=== PATIENT | female | born 1950 | race Caucasian/White ===

== ENCOUNTER → 2019-11-06 | Outpatient (CLI) | payer MEDICARE | LOC: MC.RAD 08:00 | DX: Z12.31 Encounter for screening mammogram for malignant neoplasm of breast (principal); N63.21 Unspecified lump in the left breast, upper outer quadrant ==

== ENCOUNTER → 2019-11-11 | Outpatient (CLI) | payer MEDICARE, OTHER | LOC: MC.RAD 14:13 | DX: R92.8 Other abnormal and inconclusive findings on diagnostic imaging of breast (principal) ==

== ENCOUNTER → 2019-11-18 | Outpatient (CLI) | payer MEDICARE, OTHER | LOC: MC.RAD 07:41 | DX: N63.10 Unspecified lump in the right breast, unspecified quadrant (principal) ==

== ENCOUNTER 2019-12-30 06:42 | Day surgery (SDC) | payer MEDICARE, OTHER ==
[~2019-12-30] VITALS: Ht 157.5 cm; Wt 73.4 kg
[2019-12-30 07:30] VITALS: BP 152/91; PULSE 85; TEMP 97.9
[2019-12-30] MEDS ORDERED: MOTRIN 200200 MG/TAB PO ×2 (07:32→14:13)
--- NOTE | 2019-12-30 09:56 | NUR ---
The patient was taken via wheelchair back to radiology to have further imaging and her needle localization completed prior to surgery. Will continue to monitor the patient when she returns to the unit.
--- NOTE | 2019-12-30 11:15 | NUR ---
The patient arrived back to [facility] from radiology. The patient ambulated to the bathroom independently and then was settled back on the cart with warm blankets. Call light is within reach. The patient denies any further needs. Will continue to monitor the patient.
--- NOTE | 2019-12-30 11:54 | NUR ---
The patient was taken via cart to the operating room by NILSA Bueno. The patient's chart was sent with her to [facility]. Will continue to monitor the patient when she returns post operatively.
[2019-12-30] MEDS ORDERED: NORCO 325 MG-51 TAB PO (14:13)
[2019-12-30 14:20] VITALS: BP 141/73; PULSE 79; TEMP 98.9
--- NOTE | 2019-12-30 14:20 | NUR ---
The patient arrived back to [facility] from the recovery room at this time. The patient appears drowsy but arouses easily to her name. The patient denies any pain or nausea at this time. The patient has one incision to her right axilla which is closed with arana set and appears clean, dry and intact. The patient has oxygen in place at 1 L per nasal cannula. Post operative vital signs were started at this time. The patient agrees to try some ice chips at this time. Call light is within reach. Will continue to monitor the patient.
[2019-12-30 14:35] VITALS: BP 126/60; PULSE 78
--- NOTE | 2019-12-30 14:35 | NUR ---
The patient appears to be tolerating the ice chips well and agrees to try some wheat toast and cranberry juice. Vital signs appear stable. Call light remains within reach. Will continue to monitor the patient.
[2019-12-30 14:50] VITALS: BP 104/87; PULSE 86
--- NOTE | 2019-12-30 14:50 | NUR ---
The patient has finished her toast and is sipping in her juice and appears to be tolerating both well. The patient has given a PRN dose of [place] 1 tab for continued pain relief upon discharge. The patient was weaned to room air and appears to be tolerating it well. Will continue to monitor the patient.
[2019-12-30 15:05] VITALS: BP 124/63; PULSE 84
--- NOTE | 2019-12-30 15:05 | NUR ---
The patient ambulated to the bathroom with the stand by assistance of one and appeared to tolerate the activity well. The patient voided without difficulty and voices a desire to be discharged home. The nurse instructed the patient to get dressed and notify the staff when she is ready to review her discharge paperwork.
--- NOTE | 2019-12-30 15:15 | NUR ---
Discharge instructions were reviewed with the patient at this time. She verbalized understanding and has no questions for the nurse at this time. The patient's IV to her left hand was removed and a pressure dressing was applied to the site. The patient is dressed and ready to be escorted out.
--- NOTE | 2019-12-30 15:23 | NUR ---
The patient was escorted out via wheelchair to a private vehicle by NILSA Cerda. The patient's belongings and discharge paperwork were sent with her. The patient's is present to drive her home.
== END 2019-12-30 15:23 | disposition home or self-care (01) ==
LOC: SDCO 06:42
DX: C50.511 Malignant neoplasm of lower-outer quadrant of right female breast (principal); Z17.0 Estrogen receptor positive status [ER+]; Z87.891 Personal history of nicotine dependence
CPT/HCPCS: A9541; J1100; J2405; J2550; J2704; J3010; J7120

== ENCOUNTER 2020-01-08 10:27 | Day surgery (SDC) | payer MEDICARE, OTHER ==
[~2020-01-08] VITALS: Ht 157.5 cm; Wt 74.1 kg
[2020-01-08] VITALS (7 sets, daily range): BP systolic 109–154; BP diastolic 61–77; PULSE 77–96; TEMP 98–98.6
[~2020-01-08 10:27] MED LIST: MOTRIN 200200 MG/TAB PO; NORCO 325 MG-51 TAB PO
[2020-01-08] MEDS ORDERED: MOTRIN 200200 MG/TAB PO (14:13)
[2020-01-08] MEDS ORDERED: NORCO 325 MG-51 TAB PO (14:13)
--- NOTE | 2020-01-08 14:40 | NUR ---
Patient returns to room 3 per cart from PACU accompanied by Darshana ASH and is awake and alert. Temp 98.0 and room air sats 93%. Denies pain or nausea. IV fluids infusing and site is free of redness. Given sips of water to drink.
--- NOTE | 2020-01-08 14:55 | NUR ---
Taking sips of water and does well.
--- NOTE | 2020-01-08 15:10 | NUR ---
Eating toast and drinking water. Denies pain or nausea.
--- NOTE | 2020-01-08 15:25 | NUR ---
Resting and denies need for pain medication. Carlson set dressing covering the right breast incision dry. No swelling, redness, or drainage noted.
--- NOTE | 2020-01-08 15:35 | NUR ---
IV discontinued and site is free of redness. Assisted up to the bathroom and gait is steady. Voids and returns to room.
--- NOTE | 2020-01-08 15:45 | NUR ---
Patient dresses self.
--- NOTE | 2020-01-08 15:55 | NUR ---
Given dismissal instructions and voices understanding of home cares and follow up as scheduled. Provided scripts for [facility] and [facility]. Reviewed restrictions and voices understanding of these.
--- NOTE | 2020-01-08 16:01 | NUR ---
Patient dismissed to home per private vehicle driven by spouse and taken to the front door per wheelchair and assisted into vehilce by this RN with instructions in hand.
== END 2020-01-08 16:01 | disposition home or self-care (01) ==
LOC: SDCO 10:27
DX: D05.11 Intraductal carcinoma in situ of right breast (principal); M81.0 Age-related osteoporosis without current pathological fracture; Z11.59 Encounter for screening for other viral diseases; Z90.710 Acquired absence of both cervix and uterus; Z80.42 Family history of malignant neoplasm of prostate; Z80.41 Family history of malignant neoplasm of ovary; Z79.899 Other long term (current) drug therapy; Z87.891 Personal history of nicotine dependence
CPT/HCPCS: J0690; J1100; J1885; J2250; J2405; J2704; J2795; J3010; J7120

== ENCOUNTER → 2020-12-02 | Outpatient (CLI) | payer MEDICARE, OTHER | LOC: MC.RAD 11:45 | DX: Z98.890 Other specified postprocedural states (principal); Z85.3 Personal history of malignant neoplasm of breast ==

== ENCOUNTER 2021-09-28 17:08 | Emergency (ER) | payer MEDICARE ==
[~2021-09-28] VITALS: Ht 157.5 cm; Wt 72.7 kg
[2021-09-28 17:16] VITALS: TEMP 98.5
[2021-09-28] MEDS ORDERED: TAMOXIFEN CITRA20 MG PO (17:39)
[2021-09-28] MEDS ORDERED: CELEXA10 MG PO (17:40)
[2021-09-28 18:06] LABS: BASO # 0.1 K/mm3 (0.0-0.2); BASO % 1.2 % (0.0-2.0); EOS # 0.2 K/mm3 (0.0-0.7); EOS % 2.3 % (0.0-4.0); GRAN # 5.7 K/mm3 (1.4-6.5); GRAN % 55.9 % (42.2-75.2); HEMATOCRIT 39.2 % (37.0-47.0); HEMOGLOBIN 13.2 g/dl (12.5-16.0); LYMPH # 2.9 K/mm3 (1.2-3.4); LYMPH % 28.6 % (20.0-51.0); MEAN CELL VOLUME 89 fl (80.0-100.0); MEAN CORPUSCULAR HEMOGLOBIN 30 pg (27-31); MEAN CORPUSCULAR HGB CONC 34 g/dl (33.0-37.0); MEAN PLATELET VOLUME 11.8 fl (7.4-10.4); MONO # 1.2 K/mm3 (0.1-0.6); MONO % 11.4 % (1.7-9.3); PLATELET COUNT 201 K/mm3 (130-400); REDCELL DISTRIBUTION WIDTH-CV 12.3 % (11.5-14.5)
[2021-09-28 18:16] LABS: PROTHROMBIN TIME 11.6 SECONDS (9.7-12.8)
[2021-09-28 18:20] LABS: ALANINE AMINOTRANSFERASE 44 U/L (0-55); ALBUMIN 3.6 gm/dL (3.4-4.8); ALKALINE PHOSPHATASE 57 U/L (40-150); ANION GAP 12 mmol/L (7-16); AST,SGOT 39 U/L (5-34); BILIRUBIN,TOTAL 0.4 mg/dL (0.2-1.2); BLOOD UREA NITROGEN 11 mg/dL (10-20); CARBON DIOXIDE 22 mmol/L (23-31); CHLORIDE 109 mmol/L (98-107); CREATININE, serum 0.69 mg/dL (0.57-1.11); GLUCOSE 92 mg/dL (70-99); POTASSIUM 3.8 mmol/L (3.5-4.5); SODIUM 143 mmol/L (136-145); TOTAL PROTEIN 6.9 gm/dL (6.2-8.1)
[2021-09-28 18:27] LABS: TROPONIN-I < 0.010 ng/mL (0.00-0.033)
[2021-09-28] MEDS ORDERED: PREDNISONE20 MG PO (19:10)
[2021-09-28] MEDS ORDERED: ZOVIRAX400 MG PO (19:10)
[2021-09-28] MEDS ORDERED: LACRI LUBE1 OIN OP (19:29)
[2021-09-28 20:07] VITALS: BP 163/71; PULSE 68
== END 2021-09-28 19:33 | disposition home or self-care (01) ==
LOC: COL.ER 17:08
PROVIDERS: Nurse Practitioner
DX: G51.0 Bell's palsy (principal); F32.A Depression, unspecified; Z79.899 Other long term (current) drug therapy
CPT/HCPCS: J7512

== ENCOUNTER 2021-10-11 13:56 | Outpatient (CLI) | payer MEDICARE ==
[~2021-10-11] VITALS: Ht 157.5 cm; Wt 73.4 kg
[~2021-10-11 13:56] MED LIST changes: +CELEXA10 MG PO; +LACRI LUBE1 OIN OP; +PREDNISONE20 MG PO; +TAMOXIFEN CITRA20 MG PO; +ZOVIRAX400 MG PO
[2021-10-11 14:21] VITALS: BP 126/76; PULSE 78; TEMP 98
== END 2021-10-11 17:04 | disposition home or self-care (01) ==
LOC: EUO 13:56
DX: M81.0 Age-related osteoporosis without current pathological fracture (principal)
CPT/HCPCS: J3489

== ENCOUNTER → 2022-01-13 | Outpatient (CLI) | payer MEDICARE | LOC: MC.RAD 10:27 | DX: Z12.31 Encounter for screening mammogram for malignant neoplasm of breast (principal) ==

== ENCOUNTER → 2022-10-18 | Outpatient (CLI) | payer MEDICARE ==
[~2022-10-18] VITALS: Ht 157.5 cm; Wt 70.4 kg
[~2022-10-18] MED LIST changes: +PRINIVIL20 MG PO
[2022-10-18 10:23] VITALS: BP 131/79; PULSE 92; TEMP 98.5
== END ==
LOC: EUO 10:00
DX: M81.0 Age-related osteoporosis without current pathological fracture (principal)
CPT/HCPCS: J3489

== ENCOUNTER → 2023-09-21 | Outpatient (CLI) | payer MEDICARE ==
[~2023-09-21] MED LIST changes: +CRESTOR5 MG PO; +ZOLOFT 100MG100 MG PO
== END ==
LOC: COL.RAD 14:28
DX: K57.32 Diverticulitis of large intestine without perforation or abscess without bleeding (principal); R31.9 Hematuria, unspecified
CPT/HCPCS: Q9967

== ENCOUNTER 2023-12-12 08:04 | Outpatient (CLI) | payer MEDICARE ==
[~2023-12-12] VITALS: Ht 157.5 cm; Wt 70.6 kg
[2023-12-12 08:25] VITALS: BP 142/80; PULSE 72; TEMP 98.1
--- NOTE | 2023-12-12 08:47 | NUR ---
PT TOLERATES INFUSION WELL. VS REMAIN WITHIN NORMAL LIMITS. PT TOLERATES PO FLUIDS THROUGHOUT INFUSION. PT AMBULATES TO [facility] UPON DISCHARGE AND IV IS DISCONTINUED.
== END 2023-12-12 09:14 | disposition home or self-care (01) ==
LOC: EUO 08:04
DX: M81.0 Age-related osteoporosis without current pathological fracture (principal)
CPT/HCPCS: J3489

== ENCOUNTER → 2024-03-21 | Outpatient (CLI) | payer MEDICARE | LOC: MC.RAD 09:54 | DX: Z12.31 Encounter for screening mammogram for malignant neoplasm of breast (principal) ==